=== PATIENT | male | born 1970 | race Caucasian/White ===

== ENCOUNTER 2016-12-10 18:24 | Emergency (ER) | payer BC ==
[~2016-12-10] VITALS: Ht 190.5 cm; Wt 95.3 kg
[2016-12-10 18:32] VITALS: BP 170/89
[2016-12-10] MEDS ORDERED: AMOXICILLIN500 MG ORAL (18:48)
[2016-12-10 18:58] VITALS: BP 160/104
[2016-12-10] MEDS ORDERED: TdaP Vaccine 0.5ml Syr IM ONE (19:00)
--- NOTE | 2016-12-10 19:33 | Emergency Room Report ---
History of Present Illness General Chief Complaint: Puncture Wound Source: Patient Present Illness HPI 46-year-old male presents to ED for evaluation. States earlier today he accidentally bit his tongue while eating. States that he noticed some blood afterwards. Has been rinsing with salt water but been persistent so he came to the hospital. At this time there is no bleeding. Denies pain. Tetanus unknown. No other aggravating relieving factors. denies history of coagulopathy. Denies any other associated symptoms Allergies: Coded Allergies: No Known Allergies (Unverified , 12/10/16) Patient History Past Medical History: asthma Past Surgical History: none Pertinent Family History: none Social History: Denies: alcohol use, drug use, smoking Immunizations: UTD Reviewed Nursing Documentation: PMH: Agreed, PSxH: Agreed Nursing Documentation-PMH Past Medical History: No History, Except For Hx Asthma: Yes Review of Systems All Other Systems: negative except mentioned in HPI Physical Exam Vital Signs Date Time Temp Pulse Resp B/P Pulse Ox O2 Delivery O2 Flow Rate FiO2 12/10/16 18:32 80 18 170/89 12/10/16 18:58 98.0 100 Room Air Sp02 EP Interpretation: reviewed, normal General Appearance: no apparent distress, alert, GCS 15, non-toxic Head: normocephalic Eyes: bilateral eye PERRL, bilateral eye normal inspection ENT: hearing grossly normal, normal pharynx, no angioedema, normal voice, other - 2mm superficial laceration to tongue. no active bleeding Neck: full range of motion, supple/symm/no masses Respiratory: chest non-tender, lungs clear, normal breath sounds, speaking full sentences Cardiovascular #1: regular rate, rhythm, no edema Gastrointestinal: normal inspection Rectal: deferred Genitourinary: no CVA tenderness Musculoskeletal: normal inspection Neurologic: alert, oriented x3, responsive, motor strength/tone normal, sensory intact, speech normal Psychiatric: normal inspection Skin: normal inspection Lymphatic: normal inspection Medical Decision Making Diagnostic Impression: Primary Impression: Tongue laceration Qualified Codes: S01.512A - Laceration without foreign body of oral cavity, initial encounter ER Course Hospital Course 46-year-old male present with bleeding from the tongue status post biting while eating Clinical course Patient placed on stretcher. After initial history physical exam reveals a middle-age male in no acute distress. On exam there is a very small laceration to the tongue. No active bleeding. Does not require suturing. I ordered tetanus shot. Patient will be placed on antibiotics. Wound care instructions given Diagnosis - tongue laceration Stable and discharged to home with prescription for amoxicillin. wound Care instructions given. Return to ED if any signs of infection develop Last Vital Signs Date Time Temp Pulse Resp B/P Pulse Ox O2 Delivery O2 Flow Rate FiO2 12/10/16 18:58 76 14 160/104 100 Room Air 12/10/16 18:58 98.0 Status: improved Disposition: HOME, SELF-CARE Condition: Stable Scripts Amoxicillin* (AMOXIL*) 500 Mg Capsule 500 MG ORAL THREE TIMES A DAY, #21 CAP Prov: SUKHDEEP HAWLEY M.D. 12/10/16 Referrals: NON PHYSICIAN (PCP) Patient Instructions: Tongue Laceration, [id number] SUKHDEEP HAWLEY M.D. Dec 10, 2016 19:33
== END 2016-12-10 19:01 | disposition home or self-care (01) ==
LOC: EMR 19:00
DX: S01.512A Laceration without foreign body of oral cavity, initial encounter (principal); Y33.XXXA Other specified events, undetermined intent, initial encounter; Y92.9 Unspecified place or not applicable; Z23 Encounter for immunization
CPT/HCPCS: 90471; 90715; 99283

== ENCOUNTER 2018-07-12 00:59 | Emergency (ER) | payer BC ==
[~2018-07-12] VITALS: Ht 188 cm; Wt 93.0 kg
[~2018-07-12 00:59] MED LIST: AMOXICILLIN500 MG ORAL
[2018-07-12] MEDS ORDERED: Lidocaine 1% 10mg/ml/Epi 0.005mg/ml 30ml vial INJ ONE ×2 (01:17→01:30)
[2018-07-12 01:21] VITALS: BP 143/96
[2018-07-12] MEDS ORDERED: Hydrogen Peroxide 473ml Bottle TOPIC ONE ×2 (01:25→01:30)
[2018-07-12] MEDS ORDERED: Tetanus/Diptheria/Pertussis Vaccine 0.5ml Syr IM ONE ×2 (01:27→01:30)
[2018-07-12] MEDS ORDERED: Rabies Vaccine IM ONE (01:45)
[2018-07-12] MEDS ORDERED: RABIES IMMUNE GLOBULIN IM ONE (01:45)
[2018-07-12] MEDS ORDERED: AUGMENTIN 875-1 EAC1 ORAL (02:10)
[2018-07-12] MEDS ORDERED: Augmentin 875mg Tab ORAL ONE (02:15)
--- NOTE | 2018-07-12 02:35 | Pre-Procedure Note/Attestation ---
Pre-Procedure Note/Attestation Complete Prior to Procedure Planned Procedure: left Procedure Narrative: raccoon bite ofleft hand laceration o ulner and dorsal surface Indications for Procedure Pre-Operative Diagnosis: laceration ofofleft handover 5 th metacarpal Attestation I attest that I discussed the nature of the procedure; its benefits; risks and complications; and alternatives (and the risks and benefits of such alternatives ), prior to the procedure, with the patient (or the patient's legal access representative). I attest that, if there was a reasonable possibility of needing a blood transfusion, the patient (or the patient's legal access representative) was given the [place] [employer] standardized written summary, pursuant to the Wes Rod Blood Safety Act ([place] Health and Safety Code # 1645, as amended). I attest that I re-evaluated the patient just prior to the surgery and that there has been no change in the patient's H&P, except as documented below: Neel Hernandez MD Jul 12, 2018 02:35
[2018-07-12 02:47] VITALS: BP 134/82
[2018-07-12 02:48] VITALS: BP 134/82
--- NOTE | 2018-07-12 03:10 | Emergency Room Report ---
History of Present Illness General Chief Complaint: Animal Bite Source: Patient Present Illness HPI Patient reports that just prior to arrival he was in his house the reports that they have a dog door And came downstairs to find that a raccoon was in the house Patient was bitten on the left hand with the raccoon And presents for further evaluation Pain to the left hand is 7 out of 10 Denies any lapse of consciousness is unaware of his last tetanus shot Allergies: Coded Allergies: SULFA (SULFONAMIDE ANTIBIOTICS) (Verified Allergy, Unknown, 07/12/18) Patient History Past Medical History: see triage record Pertinent Family History: none Reviewed Nursing Documentation: PMH: Agreed; PSxH: Agreed Nursing Documentation-PMH Past Medical History: No History, Except For Hx Asthma: Yes Review of Systems All Other Systems: negative except mentioned in HPI Physical Exam Vital Signs Date Time Temp Pulse Resp B/P (MAP) Pulse Ox O2 Delivery O2 Flow Rate FiO2 07/12/18 01:09 97.6 72 16 143/96 100 Room Air 97.5 Sp02 EP Interpretation: reviewed, normal General Appearance: no apparent distress Head: normocephalic, atraumatic Eyes: bilateral eye PERRL, bilateral eye EOMI ENT: hearing grossly normal, normal pharynx Neck: full range of motion, supple Respiratory: lungs clear Cardiovascular #1: regular rate, rhythm Gastrointestinal: non tender, soft Musculoskeletal: normal inspection - Patient has full extension and flexion of all digits able to approximate the thumb, Neurologic: alert, oriented x3 Skin: other - Jagged laceration, likely bite, hyperthenar region proximal to the small finger laterally Lymphatic: no adenopathy Medical Decision Making Diagnostic Impression: Primary Impression: animal bite ER Course Given the presentation and appearance Plastic specialty was contacted Please refer to his note for the full specifics of the laceration repair Given that the patient had this incident with a raccoon This is considered an high consideration for possible rabies He do not have the rabies immunoglobulin and vaccine available at this facility Contact was made with surrounding facilities And specifically [facility] does have the medication I spoke to the ER physician regarding the patient's care and they will be happy to see the patient at the facility Patient was provided with tetanus, antibiotics, suture care and further stabilized at this time patient is discharged from our facility to follow closely and emergently at [facility] for further rabies immunoglobulin and vaccine Last Vital Signs Date Time Temp Pulse Resp B/P (MAP) Pulse Ox O2 Delivery O2 Flow Rate FiO2 07/12/18 02:48 97.5 66 14 134/82 100 Room Air 97.5 Status: improved Disposition: HOME, SELF-CARE Condition: Improved Scripts Amoxicillin/Potassium Clav 875-125* (AUGMENTIN 875-125 TABLET*) 1 Each Tablet 1 TAB ORAL TWICE A DAY, #14 TAB Prov: Shankar Fuentes DO 07/12/18 Referrals: NOT CHOSEN IPA/,REFERRING (PCP) Neel Hernandez MD Patient Instructions: Animal Bite Additional Instructions: You have reported a raccoon bite. Raccoon bites are considered high risk for rabies. Unfortunately the rabies immunoglobulin and vaccine were not available at this facility. Contact has been made with local facilities, specifically [facility], who has reported that they do have this medication. I have spoken with the ER physician on duty and they will expect you to present to their facility Shankar Fuentes DO Jul 12, 2018 03:10
--- NOTE | 2018-07-12 10:57 | Brief Operative Note ---
Immediate Post Operative Note Operative Note Pre-op Diagnosis: laceration ofofleft handover 5 th metacarpal Procedure: DEBRIDEMENT AND PLASTIC REPAIR OF LEFT HAND LACERATION Post-op Diagnosis: same as pre-op Surgeon: RADHA Anesthesia: local Specimen: none Complications: none Condition: stable Fluids: NONE Estimated Blood Loss: minimal Drains: none Packing: NONE Implant(s) used?: No Neel Hernandez MD Jul 12, 2018 10:57
--- NOTE | 2018-07-12 20:00 | Operative Note - Dictated ---
DATE OF OPERATION: 07/12/2018 SURGEON: Neel Hernandez M.D. PREOPERATIVE DIAGNOSIS: Laceration of left hand dorsum and ulnar aspect secondary to a raccoon bite. POSTOPERATIVE DIAGNOSIS: Laceration of left hand dorsum and ulnar aspect secondary to a raccoon bite. PROCEDURE PERFORMED: Plastic repair of laceration of the left hand. INDICATIONS: The patient is approximately in his 40s, who came into the operating room last night after he was bitten by a raccoon on his left hand. The patient did not know whether the raccoon could have rabies and was instructed on to go to [facility] in that regard. PROCEDURE IN DETAIL: The patient was injected with local before I got there. I actually injected with more local and then used irrigation of Betadine and saline and discovered that there was a free vein that was flopping in the breeze. I ligated the vein using a 4-0 Vicryl suture. I trimmed the area distal to that and then proceeded to debride the edges that were ragged with an 11-blade and sutured the dermis, closed using a 4-0 Vicryl suture in the dermis in multiple areas and then did a continuous running 5-0 blue Prolene in two areas to close the incision. There was no fracture of the bones and there was no nerve involvement or tendon involvement. The patient was then given instructions to go to [facility] for the issue of rabies and went home with antibiotics to cover Pasteurella multocida and other microbes. The patient was in satisfactory condition, had less than 5 mL blood loss. The patient tolerated the procedure well and was given instructions to come to my office following the [facility] visit. Neel Hernandez M.D. DR: RACHNA JOB#: [id number] CC:
== END 2018-07-12 02:51 | disposition home or self-care (01) ==
LOC: EMR 01:09
DX: S61.211A Laceration without foreign body of left index finger without damage to nail, initial encounter (principal); W55.51XA Bitten by raccoon, initial encounter; Y92.89 Other specified places as the place of occurrence of the external cause; Z23 Encounter for immunization
CPT/HCPCS: 90471; 90715; 96372; 99283